=== PATIENT | female | born 1950 | race Caucasian/White ===

== ENCOUNTER 2016-12-18 17:41 | Emergency (ER) | payer OTHER ==
[~2016-12-18] VITALS: Ht 152.4 cm; Wt 73.9 kg
[~2016-12-18 17:41] MED LIST: ASPIR 8181 MG PO; GLUCOPHAGE850 MG PO; LANTUS INS100 UNITS/ SUBQ; ZESTRIL20 MG PO
[2016-12-18 17:52] VITALS: BP 147/73
--- NOTE | 2016-12-18 18:13 | NUR ---
PT TAKEN TO XRAY VIA WHEELCHAIR AT THIS TIME,
--- NOTE | 2016-12-18 18:21 | NUR ---
PT BACK FROM [facility] TO [facility]NASTAS[facility] KRUGER.
--- NOTE | 2016-12-18 19:12 | NUR ---
Patient being evaluated by DR. CASTELLANOS.
--- NOTE | 2016-12-18 19:12 | NUR ---
PT TAKEN TO OF AT THIS TIME.
[2016-12-18] MEDS ORDERED: KETOROLAC 60 MG/2 ML VIAL IM ONE (19:20)
--- NOTE | 2016-12-18 19:20 | NUR ---
66 Y/O FEMALE CAME IN WITH SHOULDER PAIN RIGHT 06/30. AWAKE, ALERT, ORIENTED X4. SPEAKING [place]. WITH FAMILY AT BEDSIDE FIRE REGULATOR. NO NAUSEA/VOMITING/DIARRHEA.
[2016-12-18 20:10] VITALS: BP 134/68
--- NOTE | 2016-12-18 20:10 | NUR ---
Patient discharged with v/s stable. Written and verbal after care instructions given and explained. Patient verbalized understanding. Ambulatory with steady gait. All questions addressed prior to discharge. Advised to follow up with PMD.
== END 2016-12-18 20:10 | disposition home or self-care (01) ==
LOC: MED 17:41
DX: S43.51XA Sprain of right acromioclavicular joint, initial encounter (principal); S29.012A Strain of muscle and tendon of back wall of thorax, initial encounter; I10 Essential (primary) hypertension; E11.9 Type 2 diabetes mellitus without complications; Z79.4 Long term (current) use of insulin; Z79.82 Long term (current) use of aspirin; X58.XXXA Exposure to other specified factors, initial encounter; Y93.89 Activity, other specified; Y92.89 Other specified places as the place of occurrence of the external cause; Y99.8 Other external cause status
CPT/HCPCS: 73030; 96372; 99284; J1885

== ENCOUNTER 2018-03-04 18:27 | Emergency (ER) | payer OTHER ==
[~2018-03-04] VITALS: Ht 152.4 cm; Wt 67.6 kg
[~2018-03-04 18:27] MED LIST changes: +ASPI81EC97 PO; -ASPIR 8181 MG PO; -GLUCOPHAGE850 MG PO; -LANTUS INS100 UNITS/ SUBQ; +LANTUS SUBQ; +LISI-420 PO; +METF850T PO; -ZESTRIL20 MG PO
[2018-03-04 18:31] VITALS: BP 126/50
[2018-03-04 20:15] VITALS: BP 125/73
== END 2018-03-04 20:15 | disposition home or self-care (01) ==
LOC: MED 18:27
DX: N39.0 Urinary tract infection, site not specified (principal); E11.9 Type 2 diabetes mellitus without complications; I10 Essential (primary) hypertension
CPT/HCPCS: 81002; 82948; 99283